=== PATIENT | male | born 1945 | race Caucasian/White ===

== ENCOUNTER 2018-03-22 11:31 | Inpatient (IN) | payer OTHER, MEDICARE ==
[~2018-03-22] VITALS: Ht 177.8 cm; Wt 77.0 kg
[2018-03-22 12:45] LABS: BASOPHILS % (AUTO) 0.5 % (0-1); EOSINOPHILS # (AUTO) 0.2 X10'3 (0-0.9); EOSINOPHILS % (AUTO) 3.8 % (0-6); HEMATOCRIT 38.3 % (42.0-52.0); LYMPHOCYTES # (AUTO) 1.1 X10'3 (1.1-4.8); LYMPHOCYTES % (AUTO) 22.1 % (21-51); MEAN CORPUSCULAR HEMOGLOBIN 31.6 PG (27.0-31.0); MEAN CORPUSCULAR VOLUME 92.8 FL (78-98); MEAN PLATELET VOLUME 8.1 FL (7.4-10.4); MONOCYTES # (AUTO) 0.5 X10'3 (0-0.9); MONOCYTES % (AUTO) 10.8 % (2-12); NEUTROPHILS # (AUTO) 3.1 X10'3 (1.8-7.7); NEUTROPHILS % (AUTO) 62.8 % (42-75); PLATELET COUNT 229 X10'3 (140-440); RED BLOOD COUNT 4.13 X10'6 (4.70-6.10); RED CELL DISTRIBUTION WIDTH 14.2 % (11.5-14.5)
[2018-03-22 12:55] LABS: PARTIAL THROMBOPLASTIN TIME 25 SECONDS (22-32); PROTHROMBIN TIME 10.6 SECONDS (9.0-12.0)
[2018-03-22 13:01] LABS: ALANINE AMINOTRANSFERASE 29 U/L (12-78); ALBUMIN 3.7 G/DL (3.4-5.0); ALKALINE PHOSPHATASE 94 IU/L (46-116); ANION GAP 10 (8-16); ASPARTATE AMINO TRANSFERASE 24 U/L (10-37); BILIRUBIN,TOTAL 0.8 MG/DL (0.1-1.0); BLOOD UREA NITROGEN 14 MG/DL (7-18); BUN/CREATININE RATIO 12.6 (5.4-32.0); CALCIUM 9.5 MG/DL (8.5-10.1); CHLORIDE 107 MMOL/L (99-107); CREATININE 1.11 MG/DL (0.60-1.10); GLUCOSE 113 MG/DL (70-104); SODIUM 143 MMOL/L (135-145); TOTAL CARBON DIOXIDE 25.6 MMOL/L (24-32); TOTAL PROTEIN 7.3 G/DL (6.4-8.2); eGFR 65 ML/MIN
[2018-03-22] MEDS ORDERED: normal saline 1000ml 1,000 ML IV SCH (14:02)
[2018-03-22] MEDS ORDERED: mag hydrox/Alum hydrox/simeth 30ml oral suspension PO PRN (14:05)
[2018-03-22] MEDS ORDERED: HYDROcodone/acetaminophen 5mg/325mg tablet PO PRN (14:05)
[2018-03-22] MEDS ORDERED: potassium Cl 20 mEq SR tablet PO PRN ×2 (14:05)
[2018-03-22] MEDS ORDERED: ondansetron/PF 4mg/2ml inj IV PRN (14:05)
[2018-03-22] MEDS ORDERED: acetaminophen 325mg tablet PO PRN ×2 (14:05)
[2018-03-22] MEDS ORDERED: regadenoson 0.4mg/5ml syringe IV ONE (14:05)
[2018-03-22] MEDS ORDERED: CAFFEINE CITRATE 60 MG/3 ML injection vial IV PRN (14:05)
[2018-03-22] MEDS ORDERED: HYDROcodone/acetaminophen 10/325mg tab PO PRN (14:05)
[2018-03-22] MEDS ORDERED: magnesium hydroxide 30ml (MOM) UD suspension PO PRN (14:05)
[2018-03-22] MEDS ORDERED: potassium Cl 40MEQ/NS 500ml 500 ML IV PRN ×2 (14:05)
[2018-03-22] MEDS ORDERED: morphine 4 MG/ML inj SYRINge IV PRN ×2 (14:05)
[2018-03-22] MEDS ORDERED: nitroGLYCERIN 0.4mg SUBLingual tab SL PRN (14:05)
[2018-03-22] MEDS ORDERED: metoprolol tartrate 1mg/ml inj IV PRN (14:05)
[2018-03-22] MEDS ORDERED: CHOL100046 PO (16:02)
[2018-03-22] MEDS ORDERED: GABA-532 PO (16:02)
[2018-03-22] MEDS ORDERED: TAMS0.4C32 PO (16:02)
[2018-03-22] MEDS ORDERED: MULT-1085 PO (16:02)
[2018-03-22] MEDS ORDERED: CARV3.122 PO (16:02)
[2018-03-22] MEDS ORDERED: SIMV20TA5 PO (16:02)
[2018-03-22 16:41] VITALS: BP 143/84
[2018-03-22] MEDS: gabapentin 300mg capsule PO SCH (20:57)
[2018-03-22] MEDS: carVEDilol 3.125mg tablet PO SCH (20:57)
[2018-03-22] MEDS ORDERED: non-formulary drug (Simvastatin* (Zocor*) 1 TAB) PO SCH (21:00)
[2018-03-22] MEDS ORDERED: atorvastatin 10mg tablet PO SCH (21:00)
[2018-03-22] MEDS ORDERED: temazepam 15mg capsule PO PRN (21:00)
[2018-03-22 22:00] VITALS: BP 112/65
[2018-03-23] VITALS (13 sets, daily range): BP systolic 110–138; BP diastolic 57–85
[2018-03-23 05:47] LABS: BASOPHILS % (AUTO) 0.4 % (0-1); EOSINOPHILS # (AUTO) 0.3 X10'3 (0-0.9); EOSINOPHILS % (AUTO) 5.2 % (0-6); HEMATOCRIT 38.7 % (42.0-52.0); HEMOGLOBIN 13.3 g/dl (14.0-17.9); LYMPHOCYTES % (AUTO) 17.2 % (21-51); MEAN CORPUSCULAR HEMOGLOBIN 31.6 PG (27.0-31.0); MEAN CORPUSCULAR HGB CONC 34.4 % (33.0-36.5); MEAN CORPUSCULAR VOLUME 91.9 FL (78-98); MEAN PLATELET VOLUME 8.4 FL (7.4-10.4); MONOCYTES # (AUTO) 0.7 X10'3 (0-0.9); MONOCYTES % (AUTO) 12.1 % (2-12); NEUTROPHILS # (AUTO) 3.8 X10'3 (1.8-7.7); NEUTROPHILS % (AUTO) 65.1 % (42-75); PLATELET COUNT 228 X10'3 (140-440); RED BLOOD COUNT 4.21 X10'6 (4.70-6.10); RED CELL DISTRIBUTION WIDTH 14.2 % (11.5-14.5); WHITE BLOOD COUNT 5.9 X10'3 (4.5-11.0)
[2018-03-23 06:29] LABS: ALBUMIN 3.6 G/DL (3.4-5.0); ANION GAP 9 (8-16); BLOOD UREA NITROGEN 16 MG/DL (7-18); BUN/CREATININE RATIO 14.7 (5.4-32.0); CALCIUM 8.6 MG/DL (8.5-10.1); CHLORIDE 109 MMOL/L (99-107); CHOL/HDL RATIO 3.3 (0.00-4.99); CHOLESTEROL 120 MG/DL (0-200); CREATININE 1.09 MG/DL (0.60-1.10); GLUCOSE 106 MG/DL (70-104); HDL CHOLESTEROL 36 MG/DL (35-60); LDL CHOLESTEROL 75 MG/DL (50-100); SODIUM 145 MMOL/L (135-145); TOTAL CARBON DIOXIDE 27.2 MMOL/L (24-32); TRIGLYCERIDES 82 MG/DL (20-135); TROPONIN I < 0.04 NG/ML (0.0-0.05); eGFR 66 ML/MIN
[2018-03-23] MEDS ORDERED: enoxaparin 40mg/0.4ml syringe SUBCUT SCH (08:00)
[2018-03-23] MEDS ORDERED: K and/or MAG REPLACEMENT MC SCH (08:00)
[2018-03-23] MEDS ORDERED: tamsulosin 0.4mg capsule PO SCH (08:00)
[2018-03-23] MEDS: carVEDilol 3.125mg tablet PO SCH (08:20)
[2018-03-23] MEDS: gabapentin 300mg capsule PO SCH (08:20)
[2018-03-23] MEDS ORDERED: regadenoson 0.4mg/5ml syringe IV ONE (10:13)
[2018-03-23] MEDS ORDERED: CAFFEINE CITRATE 60 MG/3 ML injection vial IV ONE (10:13)
== END 2018-03-23 14:20 | disposition home or self-care (01) | DRG 313 ==
LOC: ER 11:31 → ED HOLD 14:02 → EDBEDREQ 15:23 → PCU 3S 16:10
PROVIDERS: ADMIT Internal Medicine; ATTEND Internal Medicine
PROC: 4A02XM4 Measurement of Cardiac Total Activity, External Approach (ICD-10-PCS; principal; 2018-03-23)
PROC: 3E073KZ Introduction of Other Diagnostic Substance into Coronary Artery, Percutaneous Approach (ICD-10-PCS; 2018-03-23)
DX: R07.89 Other chest pain (principal); G89.29 Other chronic pain; C61 Malignant neoplasm of prostate; E78.00 Pure hypercholesterolemia, unspecified; E78.5 Hyperlipidemia, unspecified; F12.90 Cannabis use, unspecified, uncomplicated; G62.9 Polyneuropathy, unspecified; I10 Essential (primary) hypertension; I08.3 Combined rheumatic disorders of mitral, aortic and tricuspid valves; Z79.899 Other long term (current) drug therapy; Z87.891 Personal history of nicotine dependence
CPT/HCPCS: 36415; 71045; 78452; 80048; 80053; 80061; 84484; 85025; 85610; 85730; 87070; 93005; 93017; 93306; 99285; A9500; J1650; J7030